=== PATIENT | male | born 1975 | race Two or more races ===

== ENCOUNTER 2020-01-20 06:54 | Emergency (ER) | payer MEDICAID, OTHER, SELFPAY ==
[~2020-01-20] VITALS: Ht 172.7 cm; Wt 95.9 kg
[2020-01-20] MEDS ORDERED: ONDANSETRON 2MG/ML, 2ML ONE (07:13)
[2020-01-20] MEDS ORDERED: MORPHINE SULFATE 4 MG/ML, 1ML ONE ×2 (07:14→07:29)
[2020-01-20] MEDS: MORPHINE SULFATE 4 MG/ML, 1ML IVPush PRN ×2 (07:20→07:31)
--- NOTE | 2020-01-20 07:25 | NUR ---
FIRST CONTACT WITH PT. PT C/O PAIN ON LEFT GROIN(TESTICLE), STARTED YESTERDAY. WORSE THIS AM. PAIN RADIATES TO LOWER LEFT BACK. STATED LIFTED HEAVY ITEMS AT WORK YESTERDAY, MAY HAVE PULLED SOMETHING. PT DENIES ANY OTHER SX. PT'S AOX4. RESPS EVEN AND UNLABORED. BP/SPO2 MONITORS IN PLACE. CALL LIGHT WITHIN REACH. EDMD AT BEDSIDE EVALUATING AT THIS TIME.
--- NOTE | 2020-01-20 07:29 | NUR ---
PT AMB TO BR AND BACK TO ROOM WITH STEADY GAIT. URINE CUP GIVEN. PT WAS NOT ABLE TO PROVIDE URINE SAMPLE AT THIS TIME.
[2020-01-20] MEDS ORDERED: SODIUM CHLORIDE FLUSH 10ML SYR IVF ONE (07:30)
[2020-01-20] MEDS ORDERED: ONDANSETRON 2MG/ML, 2ML IVPush ONE (07:30)
--- NOTE | 2020-01-20 07:32 | NUR ---
PIV STARTED AND BLOOD DRAWN. PT MEDICATED PER MAR FOR SEVERE LEFT GROIN PAIN.
[2020-01-20 07:48] LABS: BASOPHILS # (AUTO) 0.04 x10^3/uL (0-0.1); BASOPHILS % (AUTO) 0 % (0-1); EOSINOPHILS # (AUTO) 0.24 x10^3/uL (0-0.4); EOSINOPHILS % (AUTO) 3 % (1-7); LYMPHOCYTES # (AUTO) 3.75 x10^3/uL (1-3.4); LYMPHOCYTES % (AUTO) 41 % (22-44); MD NO; MEAN CORPUSCULAR HEMOGLOBIN 29.8 pg (27.5-34.5); MEAN CORPUSCULAR HGB CONC 33.2 g/dL (33.2-36.2); MEAN CORPUSCULAR VOLUME 89.8 fL (81-97); MEAN PLATELET VOLUME 8.5 fL (7.4-10.4); MONOCYTES # (AUTO) 0.68 x10^3/uL (0.2-0.8); MONOCYTES % (AUTO) 7 % (2-9); NEUTROPHILS # (AUTO) 4.43 x10^3/uL (1.8-6.8); NEUTROPHILS % (AUTO) 49 % (42-75); PLATELET COUNT 266 x10^3/uL (130-400); RED BLOOD COUNT 5.67 x10^6/uL (4.38-5.82); RED CELL DISTRIBUTION WIDTH 12.9 % (9.4-14.8)
--- NOTE | 2020-01-20 07:49 | NUR ---
pt to ct at this time.
[2020-01-20 07:55] LABS: ANION GAP 6 mmol/L (5-15); CALCIUM 9.1 mg/dL (8.5-10.1); CHLORIDE 108 mmol/L (98-107)
[2020-01-20] MEDS ORDERED: PROMETHAZINE 25 MG/ML, 1ML ONE (08:12)
--- NOTE | 2020-01-20 08:14 | NUR ---
pt vomitting in us. edmd notified and ordered med for pt.
--- NOTE | 2020-01-20 08:19 | NUR ---
pt's sister's number [phone]
--- NOTE | 2020-01-20 08:22 | NUR ---
pt amb to br with steady gait. urine cup given
[2020-01-20] MEDS ORDERED: PROMETHAZINE 25 MG/ML, 1ML IM ONE (08:30)
--- NOTE | 2020-01-20 08:50 | NUR ---
PT REFUSED PHENERGAN AT THIS TIME. PT STATED"I'M GOOD NOW."
--- NOTE | 2020-01-20 09:26 | NUR ---
PT IN BR AT THIS TIME.
--- NOTE | 2020-01-20 10:19 | NUR ---
pt still in br at this time. this rn asked if pt is ok a few times. pt stated "i'm fine" pa notified.
--- NOTE | 2020-01-20 10:27 | NUR ---
pt back to room from . pt stated "i can't pee now. i peed twice in the morning. i don't wanna have cath." pa notified.
[2020-01-20] MEDS ORDERED: SODIUM CHLORIDE 0.9% 1,000ML IVBOLUS ONE (10:30)
[2020-01-20] MEDS ORDERED: LORazepam 2 MG/ML, 1ML IVPush ONE (10:30)
[2020-01-20] MEDS ORDERED: LORazepam 2 MG/ML, 1ML ONE (10:33)
--- NOTE | 2020-01-20 10:40 | NUR ---
PT MEDICATED PER EMAR. NS INFUSING AT THIS TIME. PT TOLERATED WELL.
[2020-01-20 11:24] VITALS: BP 143/86
--- NOTE | 2020-01-20 11:24 | NUR ---
PT SITTING ON CHAIR. PT'S AOX4. RESPS EVEN AND UNLABORED. PT STATED "I CAN'T PEE YET." URINAL ON CHAIR. BP/SPO2 MONITORS IN PLACE.
--- NOTE | 2020-01-20 11:44 | NUR ---
PT PROVIDED URINE SAMPLE AT THIS TIME. URINE COLLECTED AND UA SENT.
[2020-01-20 11:57] LABS: MICROSCOPIC AUTO
[2020-01-20] MEDS ORDERED: AZITHROMYCIN 500 MG TABLET ONE (12:14)
[2020-01-20] MEDS ORDERED: CEFTRIAXONE 1,000 MG ONE (12:14)
[2020-01-20] MEDS ORDERED: AZITHROMYCIN 500 MG TABLET PO ONE (12:30)
[2020-01-20] MEDS ORDERED: CEFTRIAXONE 1,000 MG IM ONE (12:30)
== END 2020-01-20 12:36 | disposition home or self-care (01) ==
LOC: ED 10:30
DX: N30.01 Acute cystitis with hematuria (principal); N50.812 Left testicular pain; R10.32 Left lower quadrant pain; R10.9 Unspecified abdominal pain
CPT/HCPCS: 36415; 74176; 76870; 80048; 81001; 82040; 85025; 87086; 87147; 87491; 87591; 93975; 96361; 96372; 96374; 96375; 99285; J0696; J2060; J2270; J2405; J7030